=== PATIENT | male | born 1970 | race Caucasian/White ===

== ENCOUNTER 2016-10-05 18:38 | Emergency (ER) | payer BC ==
[~2016-10-05] VITALS: Ht 180.3 cm; Wt 106.0 kg
[2016-10-05 18:42] VITALS: TEMP 36.6; Ht 180.3 cm; Wt 106.0 kg
[2016-10-05 20:39] LABS: URINE APPEARANCE CLEAR (CLEAR); URINE BILIRUBIN NEG (NEG); URINE COLOR YELLOW; URINE NITRITE NEG (NEG); URINE PH 5.5 (4.5-7.5); URINE SPECIFIC GRAVITY 1.015 (1.000-1.030); UROBILINOGEN NEG (NEG); ZZUR CULT IF INDIC CLEAN CATCH NO
[2016-10-05 20:46] LABS: BASO % 0.6 %; BASO ABS # 0.05 K/uL (0-0.2); COMPLETE YES; EOS % 3.1 %; HEMATOCRIT 44.2 % (42-52); IG% 0.4 %; LYMPH ABS # 2.87 K/uL (1.2-3.4); MEAN CELL VOLUME 88.2 fL (80-100); MEAN CORPUSCULAR HEMOGLOBIN 31.7 pg (25-34); MEAN PLATELET VOLUME 9.9 fL (7.4-10.4); MONO % 8.1 %; NEUT % 50.8 %; PLATELET COUNT 213 K/uL (130-400); RED BLOOD COUNT 5.01 M/uL (4.7-6.1); WHITE BLOOD COUNT 7.76 K/uL (4.8-10.8)
[2016-10-05 20:46] LABS: MANUAL MICROSCOPIC REQUIRED? NO; REVIEW REQ? NO
--- NOTE | 2016-10-05 20:55 | DIAGNOSTIC IMAGING REPORT ---
ABDOMEN 2VIEW W/PA CHEST RTN CLINICAL HISTORY: Right flank and right upper quadrant abdominal pain COMPARISON STUDY: No previous studies for comparison. FINDINGS: The heart is mildly enlarged. There is basal interstitial prominence, likely atelectatic. There is no lobar consolidation. There is no free intraperitoneal air. There are no abnormally dilated loops of large or small bowel. There are no transition zones indicate bowel obstruction. No renal calculi are visualized. There are multiple pelvic basin calcifications likely representing phleboliths. There is mild fecal retention with a moderate fecal load within the right colon. IMPRESSION: No evidence of bowel obstruction. No evidence of free air. Electronically signed by: Tomas Farris M.D. 10/05/2016 8:54 PM Dictated Date/Time: 10/05/2016 8:53 PM
[2016-10-05] MEDS ORDERED: CARV12.52 PO (21:22)
[2016-10-05] MEDS ORDERED: ZNTT/150 PO (21:22)
[2016-10-05 21:29] LABS: ALB/GLOB RATIO 1.1 (0.9-2); ALKALINE PHOSPHATASE 73 U/L (45-117); ALT/SGPT 124 U/L (12-78); BLOOD UREA NITROGEN 11 mg/dl (7-18); BUN/CREATININE RATIO 10.8 (10-20); CALCIUM 8.7 mg/dl (8.5-10.1); CARBON DIOXIDE 25 mmol/L (21-32); CHLORIDE 105 mmol/L (98-107); CREATININE 0.98 mg/dl (0.60-1.40); GLUCOSE 90 mg/dl (70-99); SODIUM 140 mmol/L (136-145)
--- NOTE | 2016-10-05 22:24 | DIAGNOSTIC IMAGING REPORT ---
BILIARY ULTRASOUND CLINICAL HISTORY: Right upper quadrant abdominal pain COMPARISON STUDY: No previous studies for comparison. FINDINGS: The liver is of increased echogenicity, suggesting hepatic steatosis. There is no right-sided hydronephrosis. No pancreatic abnormalities are visualized. No gallstones are visualized. There is no gallbladder wall thickening. There is a tiny polyp versus ringdown artifact within the nondependent portion of the gallbladder. There is no ductal dilatation. The common bile duct measures 4 mm. There is equivocal sludge in the gallbladder neck. The technologist reported positive sonographic Duron sign. IMPRESSION: 1. Hepatic steatosis 2. No ductal dilatation 3. Small gallbladder polyp versus ringdown artifact from adenomyomatosis 4. Equivocal sludge in the gallbladder neck. 5. The technologist reports a positive sonographic Duron sign. Electronically signed by: Tomas Farris M.D. 10/05/2016 10:23 PM Dictated Date/Time: 10/05/2016 10:09 PM
[2016-10-05] MEDS ORDERED: OXYC-57 PO (22:42)
--- NOTE | 2016-10-05 22:44 | EMERGENCY ROOM VISIT NOTE ---
History First contact with patient: 20:09 Chief Complaint: ABDOMINAL PAIN Stated Complaint: ABD PAIN, [facility]ENT [facility] Nursing Triage Summary: pt c/o right upper quad pain for "one week, more consistant for the past 3 days." denies n/v/d/urinary symptoms. states "i thought it might be a pulled muscle." hx HTN alert and oriented x4. ambulatory with steady gait. breathing WNL History of Present Illness The patient is a 46 year old male who presents to the Emergency Room with complaints of right upper quadrant/right flank pain which began 1.5 weeks ago. The patient states the pain has been intermittent over the past week and a half. He states the pain is located in his right upper abdomen/right side. He states the pain is worse with movement and he rates the discomfort a 4/10. He has not taken any medication for the pain. He does report that the pain feels like a muscle strain. He denies any history of abdominal surgery. He denies any fevers, nausea, vomiting, changes in bowel movements or urinary symptoms. He denies any chest pain or shortness of breath. Review of Systems A complete 10-point Review of Systems was discussed with the patient, with pertinent positives and negatives listed in the History of Present Illness. All remaining Review of Systems questions can be considered negative unless otherwise specified. Social History Smoking Status: Former Smoker Current/Historical Medications Scheduled Carvedilol (Coreg), 12.5 MG PO DAILY Scheduled PRN Oxycodone/Acetaminophen 5MG/325MG (Percocet 5MG/325MG), 1-2 TABS PO Q4H PRN for Pain Ranitidine (Zantac), 150 MG PO DAILY PRN for prn Allergies Coded Allergies: No Known Allergies (Unverified , 10/05/16) Physical Exam Vital Signs Date Time Temp Pulse Resp B/P Pulse Ox O2 Delivery O2 Flow Rate FiO2 10/05/16 23:09 84 18 149/100 93 10/05/16 22:21 84 18 141/90 95 Room Air 10/05/16 20:21 87 18 164/117 95 Room Air 10/05/16 18:42 36.6 94 18 162/91 96 Room Air Physical Exam VITALS: Vitals are noted on the nurse's note and reviewed by myself. Vital signs stable. GENERAL: This is a 46-year-old male, in no acute distress, nondiaphoretic, well- developed well-nourished. SKIN: Capillary reflex less than 2 seconds. HEENT: Normocephalic. PERRLA. EOMI. Nares patent. Mucous membranes moist. Neck is supple without nuchal rigidity. HEART: Regular rate and rhythm without murmurs gallops or rubs. LUNGS: Clear to auscultation bilaterally without wheezes, rales or rhonchi. No retractions or accessory muscle use. ABDOMEN: Positive bowel sounds x 4. Soft, nondistended. There is tenderness to palpation over the right flank and right upper quadrant. No guarding or rebound tenderness. Positive Duron sign. NEURO: Patient was alert and oriented to person place and time. Medical Decision & Procedures ER Provider Diagnostic Interpretation: ABDOMEN 2VIEW W/PA CHEST RTN FINDINGS: The heart is mildly enlarged. There is basal interstitial prominence, likely atelectatic. There is no lobar consolidation. There is no free intraperitoneal air. There are no abnormally dilated loops of large or small bowel. There are no transition zones indicate bowel obstruction. No renal calculi are visualized. There are multiple pelvic basin calcifications likely representing phleboliths. There is mild fecal retention with a moderate fecal load within the right colon. IMPRESSION: No evidence of bowel obstruction. No evidence of free air. BILIARY ULTRASOUND FINDINGS: The liver is of increased echogenicity, suggesting hepatic steatosis. There is no right-sided hydronephrosis. No pancreatic abnormalities are visualized. No gallstones are visualized. There is no gallbladder wall thickening. There is a tiny polyp versus ringdown artifact within the nondependent portion of the gallbladder. There is no ductal dilatation. The common bile duct measures 4 mm. There is equivocal sludge in the gallbladder neck. The technologist reported positive sonographic Duron sign. IMPRESSION: 1. Hepatic steatosis 2. No ductal dilatation 3. Small gallbladder polyp versus ringdown artifact from adenomyomatosis 4. Equivocal sludge in the gallbladder neck. 5. The technologist reports a positive sonographic Duron sign. Laboratory Results 10/05/16 20:33 Red Blood Count 5.01, Mean Corpuscular Volume 88.2, Mean Corpuscular Hemoglobin 31.7, Mean Corpuscular Hemoglobin Concent 36.0, Mean Platelet Volume 9.9, Neutrophils (%) (Auto) 50.8, Lymphocytes (%) (Auto) 37.0, Monocytes (%) (Auto) 8.1, Eosinophils (%) (Auto) 3.1, Basophils (%) (Auto) 0.6, Neutrophils # (Auto) 3.94, Lymphocytes # (Auto) 2.87, Monocytes # (Auto) 0.63, Eosinophils # (Auto) 0.24, Basophils # (Auto) 0.05 10/05/16 20:33 Test 10/05/16 20:15 10/05/16 20:33 Urine Color YELLOW Urine Appearance CLEAR (CLEAR) Urine pH 5.5 (4.5-7.5) Urine Specific [place] 1.015 (1.000-1.030) Urine Protein NEG (NEG) Urine Glucose (UA) NEG (NEG) Urine Ketones NEG (NEG) Urine Occult Blood NEG (NEG) Urine Nitrite NEG (NEG) Urine Bilirubin NEG (NEG) Urine Urobilinogen NEG (NEG) Urine Leukocyte Esterase NEG (NEG) White Blood Count 7.76 K/uL (4.8-10.8) Red Blood Count 5.01 M/uL (4.7-6.1) Hemoglobin 15.9 g/dL (14.0-18.0) Hematocrit 44.2 % (42-52) Mean Corpuscular Volume 88.2 fL (80-100) Mean Corpuscular Hemoglobin 31.7 pg (25-34) Mean Corpuscular Hemoglobin Concent 36.0 g/dl (32-36) Platelet Count 213 K/uL (130-400) Mean Platelet Volume 9.9 fL (7.4-10.4) Neutrophils (%) (Auto) 50.8 % Lymphocytes (%) (Auto) 37.0 % Monocytes (%) (Auto) 8.1 % Eosinophils (%) (Auto) 3.1 % Basophils (%) (Auto) 0.6 % Neutrophils # (Auto) 3.94 K/uL (1.4-6.5) Lymphocytes # (Auto) 2.87 K/uL (1.2-3.4) Monocytes # (Auto) 0.63 K/uL (0.11-0.59) Eosinophils # (Auto) 0.24 K/uL (0-0.5) Basophils # (Auto) 0.05 K/uL (0-0.2) RDW Standard Deviation 40.6 fL (36.4-46.3) RDW Coefficient of Variation 12.7 % (11.5-14.5) Immature Granulocyte % (Auto) 0.4 % Immature Granulocyte # (Auto) 0.03 K/uL (0.00-0.02) Anion Gap 10.0 mmol/L (3-11) Est Creatinine Clear Calc Drug Dose 119.1 ml/min Estimated GFR () 108.2 Estimated GFR (Non- 93.4 BUN/Creatinine Ratio 10.8 (10-20) Calcium Level 8.7 mg/dl (8.5-10.1) Total Bilirubin 0.5 mg/dl (0.2-1) Aspartate Amino Transf (AST/SGOT) U/L (15-37) Alanine Aminotransferase (ALT/SGPT) 124 U/L (12-78) Alkaline Phosphatase 73 U/L (45-117) Total Protein 7.8 gm/dl (6.4-8.2) Albumin 4.1 gm/dl (3.4-5.0) Globulin 3.7 gm/dl (2.5-4.0) Albumin/Globulin Ratio 1.1 (0.9-2) Lipase 148 U/L (73-393) Medications Administered Medications (Trade) Dose Ordered Sig/Dominique Route Start Time Stop Time Status Last Admin Dose Admin Oxycodone/ Acetaminophen (Percocet 5/ 325MG Home Pack) 1 homepack UD ONCE PO 10/05/16 22:45 10/05/16 22:46 DC 10/05/16 23:03 1 HOMEPACK Medical Decision Differential diagnosis includes cholecystitis, ascending cholangitis, hepatitis , pancreatitis, bowel obstruction, gastroenteritis, colitis, among others. The patient was evaluated as above. Labs were drawn and IV access was obtained. Imaging studies were performed and read by radiology as above. The patient was reassessed multiple times during their stay in the emergency department and remained in stable condition. The patient is a 46-year-old male who presents today complaining of right upper quadrant abdominal pain. The patient did have moderate tenderness on examination and a positive Duron sign. Labs revealed no leukocytosis, anemia or concerning electrolyte abnormalities. ALT was mildly elevated, but not significantly so. Bilirubin was within normal limits. Urinalysis was not suggestive of infection. Abdominal series was read radiology with no acute findings. A right upper quadrant ultrasound was performed and showed evidence of gallbladder sludge, but no evidence of acute cholecystitis or ductal dilatation. I do feel that the patient will need follow-up with gastroenterology on an outpatient basis for further biliary testing. The patient was agreeable to this. He was given a home pack and prescription for Percocet for pain. He was given information for GI follow-up and instructed to return here if he has worsening of his symptoms. Based on the patient's presentation, lab results, and imaging studies, I feel the patient is stable for outpatient treatment. The patient's case was reviewed with Dr. Adler, ED attending physician, who agreed with my assessment and treatment plan. Discharge instructions were reviewed with the patient. The patient verbalized understanding of my assessment and treatment plan and was discharged home in good condition. [place] Drug Monitoring Program Search Results: patient reviewed within database, no issues identified Impression Primary Impression: Right upper quadrant abdominal pain Departure Information Dispostion Home / Self-Care Condition GOOD Prescriptions Oxycodone/Acetaminophen 5MG/325MG (PERCOCET 5MG/325MG) Tab 1-2 TABS PO Q4H Y for Pain, #15 TAB For Initial Treatment Prov: Sarah Joy .SETH 10/05/16 Referrals No Doctor, Assigned (PCP) Adam Liz M.D. Patient Instructions My [facility] Additional Instructions You have been treated in the Emergency Department your Abdominal Pain. Laboratory results and imaging studies have ruled out any emergent causes for your abdominal pain which would warrant admission or surgery. You should follow-up with gastroenterology for further testing of your gallbladder. You have been prescribed Percocet to be used for pain control. This is a narcotic medication. You cannot drive or consume alcohol while on this medicine. This medicine should only be used for pain that cannot be controlled with [id number] pain medicines. For pain control, you can use the following [id number] medicines (if >12 yo): - Regular strength (325mg/tab) Tylenol (acetaminophen) 2 tabs every 4-6 hours as needed. Do not exceed 12 tablets in a 24 hour period. Avoid taking more than 4 grams (4000 mg) of Tylenol per day. This includes any other sources of acetaminophen you may take on a regular basis. - Regular strength (200 mg/tab) Advil (ibuprofen) 1-2 tabs every 4-6 hours as needed. Do not exceed a dose of 3200 mg per day. Drink plenty of water and stay well hydrated. As with any trip to the Emergency Department, you should follow-up with your Primary Care Provider from today's visit. Return to the emergency department if your symptoms persist despite treatment plan outlined above or if the following symptoms occur: Worsening abdominal pain , vomiting, fevers or any other new/concerning symptoms.
[2016-10-05] MEDS ORDERED: PERCOCET HOME PACK PO ONE (22:45)
[2016-10-05 23:09] VITALS: BP 149/100; PULSE 84; O2SAT 93
== END 2016-10-05 23:09 | disposition home or self-care (01) ==
LOC: C.EDB 18:41 → C.EDA 23:09
DX: R10.11 Right upper quadrant pain (principal); K82.8 Other specified diseases of gallbladder; K76.0 Fatty (change of) liver, not elsewhere classified; Z87.891 Personal history of nicotine dependence